=== PATIENT | female | born 1970 | race Two or more races ===

== ENCOUNTER 2017-02-24 14:31 | Emergency (ER) | payer BC ==
[~2017-02-24] VITALS: Ht 167.6 cm; Wt 61.2 kg
[~2017-02-24 14:31] MED LIST: NASAL SPRAY
[2017-02-24 14:51] VITALS: BP 107/39
== END 2017-02-24 18:36 | disposition left against medical advice (07) ==
LOC: ER 14:31
DX: M54.2 Cervicalgia (principal); Z53.21 Procedure and treatment not carried out due to patient leaving prior to being seen by health care provider; V43.52XA Car driver injured in collision with other type car in traffic accident, initial encounter; Y93.89 Activity, other specified; Y92.89 Other specified places as the place of occurrence of the external cause; Y99.8 Other external cause status